=== PATIENT | female | born 1955 | race Caucasian/White ===

== ENCOUNTER → 2019-11-10 11:31 | Outpatient (CLI) | payer OTHER, SELFPAY | PROVIDERS: PCP Internal Medicine; Referring Provider Internal Medicine; Visit Provider Internal Medicine | DX: Z20.828 Contact with and (suspected) exposure to other viral communicable diseases (principal) | CPT/HCPCS: 87635; G2023; U0003 ==

== ENCOUNTER 2020-08-04 10:39 | Emergency (ER) | payer OTHER, SELFPAY ==
[2020-08-04 10:39] VITALS: BP 143/90; PULSE 74; RESP 18; TEMP 36.6; O2SAT 100; BMI 35.2
--- NOTE | 2020-08-04 10:59 | ED.DCSUM_ITS ---
History of Present Illness Chief Complaint: Allergic Reaction Informant: Patient Narrative: 64-year-old female states that about 10:00 she got her H[place] vaccine in the left arm. She states she felt flushed which is not uncommon for her after influenza vaccinations. She states that now she started to feel nauseous and got a warm sensation traveling from her chest inferiorly. She states she is not itching. She denies any shortness of breath. No tongue or lip swelling. No rashes. She states she did not feel comfortable going home so she wanted to be checked out. Past Medical History - Allergies and Home Meds Allergies/Adverse Reactions: Allergies latex Allergy (Verified 08/04/20 10:42) Hives Sulfa (Sulfonamide Antibiotics) Allergy (Verified 08/04/20 10:42) Hives codeine Adverse Reaction (Verified 08/04/20 10:42) Vomiting Primary Care Physician: Catrachita Schmitz MD [Primary Care Provider] - As Needed Surgical History: noncontributory Drugs: None Review of Systems General: Reports: - - Flushing sensation. Denies: Chills, Fever, Sweats Eyes: Denies: Visual changes - bilaterally, Diplopia ENT: Denies: Rhinorrhea, Sore throat Cardiovascular: Denies: Chest pain, Palpitations Respiratory: Denies: Dyspnea, Cough, Dyspnea on exertion Gastrointestinal: Reports: Nausea. Denies: Abdominal pain, Vomiting, Diarrhea, Melena, Hematochezia Genitourinary: Denies: Dysuria, Hematuria, Frequency Musculoskeletal: Denies: Back pain, Extremity Pain Skin: Denies: Rash, Wounds Neurological: Denies: Headache, Weakness, Numbness Physical Exam Vital Signs/Narrative: Vital Signs Temp Pulse Resp BP Pulse Ox 08/04/20 10:39 98 F 74 18 143/90 H 100 Inital Vital Signs reviewed: Yes General: Well nourished, Well developed, No Acute Distress Head: Normocephalic, Atraumatic Eyes: Perrl, EOMI ENT: Moist mucous membranes, No rhinorrhea Neck: Supple, Nontender Cardiovascular: Regular rate, Regular rhythm, No murmurs Respiratory: No distress, CTA bilaterally, Chest nontender Abdomen: Soft, Nontender, Nondistended, Normal bowel sounds Back: Nontender, Normal Inspection Extremities: Nontender, No edema Skin: Normal color, No rash Neurological: Alert, Oriented x3, Cranial nerves II-XII grossly intact, Normal Strength, Normal Sensation Psychological: Normal affect, Normal Mood Diagnostic/Tx/Re-eval - Medical Decision Making Patient was placed on the monitor and will be observed. Declines any nausea m edications. Preserved. She wonders if her blood pressure had spiked and that is what was causing her symptoms. But she feels significantly better at 1215. Patient will be discharged home. ED Disposition - Plan for ED Patient: Disposition: Home or Assisted Living Diagnosis: Vaccine reaction Instructions: ED ADVERSE DRUG REACTION Allergic Referrals: Catrachita Schmitz MD [Primary Care Provider] - As Needed
[2020-08-04 12:28] VITALS: BP 136/89; PULSE 75; RESP 18; O2SAT 100
== END 2020-08-04 12:30 | disposition home or self-care (01) ==
PROVIDERS: Emergency Provider Emergency Medicine; PCP Internal Medicine
DX: T88.1XXA Other complications following immunization, not elsewhere classified, initial encounter (principal); T78.40XA Allergy, unspecified, initial encounter; Z88.2 Allergy status to sulfonamides; Z88.5 Allergy status to narcotic agent; Z91.040 Latex allergy status
CPT/HCPCS: 99283